=== PATIENT | female | born 1990 | race Caucasian/White ===

== ENCOUNTER 2024-09-09 10:51 | Observation (INO) | payer MEDICAID ==
[~2024-09-09 10:51] MED LIST: PRENTAB79
--- NOTE | 2024-09-09 11:36 | DVH ---
BIOPHYSICAL PROFILE HISTORY: GDMA1 Nuchal TECHNIQUE: Multiple transabdominal real-time grayscale sonographic images through the gravid uterus of the fetus with duplex Doppler color flow and M-mode spectral analysis FINDINGS: BIOPHYSICAL PROFILE: breathing score: 2 movement score: 2 tone score: 2 Quantitative KELTON score: 2 (KELTON: 18.9 Cm.) Total score: 8/8 Single live fetus in cephalic presentation. heart rate 136 beats per minute. Anterior placenta without previa or abruption No evidence for nuchal cord. IMPRESSION: 1. Biophysical profile score: 8/8 2. No evidence for nuchal cord. HS:Y
--- NOTE | 2024-09-15 13:13 | DVHDS2 ---
Physician Discharge Progress N Final Diagnosis: gdm,nuchal cord Operations or Procedures: Operations or Procedures nst,sono Condition on Discharge: Good Disposition: Home Discharge Instructions: Diet: Consistent carbohydrate Activity: No Restrictions, As Tolerated Medications: na Follow Up Care: Specialist: bernice in 2d Discharge Statement: "Patient was advised to return to the ER or call 911 if any headaches, dizziness, shortness of breath, chest pain, abdominal pain, bleeding, fevers, or worsening of medical condition. Patient was counseled about treatment plan, medications, possible side effects, patientverbalized understanding. All questions were answered to the best of my ability. This discharge took greater then 30 minutes in planning, reviewing documentation, counseling the patient, and discussing with other team members." PRITI ROGERS DO Sep 15, 2024 13:13
== END 2024-09-09 12:01 | disposition home or self-care (01) ==
LOC: LDRP 10:51 → UNDOADMOB 10:51 → LDRP 10:56 → UNDODISOB 12:01
PROVIDERS: ADMIT Obstetrics & Gynecology; ATTEND Obstetrics & Gynecology
DX: O24.419 Gestational diabetes mellitus in pregnancy, unspecified control (principal); O69.8 Labor and delivery complicated by other cord complications; Z3A.32 32 weeks gestation of pregnancy
CPT/HCPCS: 59025; 76818; 81002; 82948; 82962; 94760; G0378

== ENCOUNTER 2024-09-16 10:25 | Observation (INO) | payer MEDICAID ==
[~2024-09-16] VITALS: Ht 162.6 cm; Wt 91.6 kg
--- NOTE | 2024-09-16 12:08 | DVH ---
BIOPHYSICAL PROFILE HISTORY: GDMA1 TECHNIQUE: Multiple transabdominal real-time grayscale sonographic images through the gravid uterus of the fetus with duplex Doppler color flow and M-mode spectral analysis FINDINGS: BIOPHYSICAL PROFILE: breathing score: 2 movement score: 2 tone score: 2 Quantitative KELTON score: 2 (KELTON: 17.7 Cm.) Total score: 8 The cervix measures 3.6 cm with possible trace fluid. Single live fetus in cephalic presentation. heart rate 131 beats per minute. Anterior placenta without previa or abruption IMPRESSION: Biophysical profile score: 8
[2024-09-16] MEDS: TERBUTALINE SULFATE 1 MG/ML 1ML VIAL SC ONE ×3 (13:16→17:41)
[2024-09-16] MEDS: LACTATED RINGER'S 1,000 ML IV ONE (13:18)
--- NOTE | 2024-09-16 13:20 | DVHDS2 ---
Physician Discharge Progress N Final Diagnosis: cramping Operations or Procedures: Operations or Procedures nst,sono Condition on Discharge: Good Disposition: Home Discharge Instructions: Diet: Regular Activity: No Restrictions, As Tolerated Medications: na Follow Up Care: Specialist: 1w Discharge Statement: "Patient was advised to return to the ER or call 911 if any headaches, dizziness, shortness of breath, chest pain, abdominal pain, bleeding, fevers, or worsening of medical condition. Patient was counseled about treatment plan, medications, possible side effects, patientverbalized understanding. All questions were answered to the best of my ability. This discharge took greater then 30 minutes in planning, reviewing documentation, counseling the patient, and discussing with other team members." PRITI ROGERS DO Sep 16, 2024 13:20
[2024-09-16] MEDS ORDERED: NIFEdipine 10 MG CAP PO ONE (16:45)
[2024-09-16] MEDS: BETAMETHASONE ACET (30mg/5ml) 5ml Vial 6mg/ml IM ONE (17:34)
[2024-09-16] MEDS: NIFEdipine 10 MG CAP PO ONE (17:35)
[2024-09-16] MEDS ORDERED: NIFE10CA52 PO (18:29)
[2024-09-16] MEDS ORDERED: PREN-96 PO (18:29)
== END 2024-09-16 19:08 | disposition home or self-care (01) ==
LOC: LDRP 10:25
PROVIDERS: ADMIT Obstetrics & Gynecology; ATTEND Obstetrics & Gynecology
DX: O62.9 Abnormality of forces of labor, unspecified (principal); O26.893 Other specified pregnancy related conditions, third trimester; R19.7 Diarrhea, unspecified; O24.410 Gestational diabetes mellitus in pregnancy, diet controlled; Z3A.33 33 weeks gestation of pregnancy; Z79.899 Other long term (current) drug therapy; Z98.890 Other specified postprocedural states
CPT/HCPCS: 59025; 76818; 81002; 82948; 82962; 94760; 96360; 96361; 96372; G0378; J0702; J3105

== ENCOUNTER 2024-09-17 12:20 | Observation (INO) | payer MEDICAID ==
[~2024-09-17 12:20] MED LIST changes: +NIFE10CA52 PO; +PREN-96 PO; -PRENTAB79
[2024-09-17] MEDS: BETAMETHASONE ACET (30mg/5ml) 5ml Vial 6mg/ml IM ONE (17:07)
[2024-09-17] MEDS: NIFEdipine 10 MG CAP PO ONE (17:09)
== END 2024-09-17 17:12 | disposition home or self-care (01) ==
LOC: LDRP 16:45
PROVIDERS: ADMIT Obstetrics & Gynecology; ATTEND Obstetrics & Gynecology
DX: Z36.89 Encounter for other specified antenatal screening (principal); Z3A.33 33 weeks gestation of pregnancy; Z79.899 Other long term (current) drug therapy
CPT/HCPCS: 96372; G0378; J0702

== ENCOUNTER 2024-09-22 12:48 | Observation (INO) | payer MEDICAID ==
--- NOTE | 2024-09-22 14:31 | DVH ---
OB ULTRASOUND, LIMITED CLINICAL INDICATION: GDMA2/ NUCHAL TECHNIQUE: Multiple grayscale ultrasound and M-mode images were obtained of the pelvis for evaluation of intrauterine . COMPARISON: US BIOPHYSICAL PROFILE on DOS: 09/16/24, US BIOPHYSICAL PROFILE on DOS: 09/09/24 FINDINGS: Physical biophysical profile 06/04 breathin movements: 2 tone: 2 Amniotic fluid: 2 heart rate: 126 beats per minute KELTON: 18.2 cm position: Cephalic Central location: Anterior No evidence of nuchal cord IMPRESSION: Biophysical profile 06/04
--- NOTE | 2024-09-22 22:03 | DVHDS2 ---
Physician Discharge Progress N Final Diagnosis: testing for GDM, A2/PTL Operations or Procedures: Operations or Procedures 33yo IUP@34.4wks, taking procardia, +FM, denies UCs/VB/LOF VSS UA wnl NST reactive (verified by 2 RNs) BPP wnl FKC/PTL precautions reviewed. Condition on Discharge: Stable Disposition: Home Discharge Instructions: Diet: Consistent carbohydrate Activity: No Restrictions, As Tolerated Medications: see med list Follow Up Care: Specialist: f/u twice weekly Discharge Statement: "Patient was advised to return to the ER or call 911 if any headaches, dizziness, shortness of breath, chest pain, abdominal pain, bleeding, fevers, or worsening of medical condition. Patient was counseled about treatment plan, medications, possible side effects, patientverbalized understanding. All questions were answered to the best of my ability. This discharge took greater then 30 minutes in planning, reviewing documentation, counseling the patient, and discussing with other team members." ANN ARCINIEGA CNM Sep 22, 2024 22:03
== END 2024-09-22 15:21 | disposition home or self-care (01) ==
LOC: UNDOADMOB 13:42 → LDRP 13:42 → UNDODISOB 15:21
PROVIDERS: ADMIT Obstetrics & Gynecology; ATTEND Obstetrics & Gynecology
CPT/HCPCS: 59025 ×2; 76818 ×2; 81002 ×2; 82948 ×2; 82962 ×2; 94760 ×2; G0378

== ENCOUNTER 2024-09-26 04:46 | Observation (INO) | payer MEDICAID ==
--- NOTE | 2024-09-26 16:06 | DVH ---
BIOPHYSICAL PROFILE HISTORY: GDMA2 Comparison Study: None available at time of dictation. TECHNIQUE: Multiple real-time grayscale sonographic images through the gravid uterus of the fetus wi th duplex Doppler color flow and M-mode spectral analysis FINDINGS: BIOPHYSICAL PROFILE: breathing score: 2 movement score: 2 tone score: 2 Quantitative KELTON score: 2 (KELTON: 15.36 Cm.) Total score: 8/8 Single live fetus in cephalic presentation. heart rate 136 beats per minute. Anterior Grade 2 placenta without previa or abruption Single live fetus at 35 weeks 1 day Biophysical profile score 8/8 corresponding to an TABATHA of 10/30/2024 IMPRESSION: 1. Biophysical profile score: 8/8
--- NOTE | 2024-09-26 19:01 | DVHDS2 ---
Physician Discharge Progress N Final Diagnosis: gdm Operations or Procedures: Operations or Procedures nst,sono Condition on Discharge: Good Disposition: Home Discharge Instructions: Diet: Consistent carbohydrate Activity: No Restrictions, As Tolerated Medications: na Follow Up Care: Specialist: 3d Discharge Statement: "Patient was advised to return to the ER or call 911 if any headaches, dizziness, shortness of breath, chest pain, abdominal pain, bleeding, fevers, or worsening of medical condition. Patient was counseled about treatment plan, medications, possible side effects, patientverbalized understanding. All questions were answered to the best of my ability. This discharge took greater then 30 minutes in planning, reviewing documentation, counseling the patient, and discussing with other team members." PRITI ROGERS DO Sep 26, 2024 19:01
== END 2024-09-26 15:30 | disposition home or self-care (01) ==
LOC: LDRP 14:00
PROVIDERS: ADMIT Obstetrics & Gynecology; ATTEND Obstetrics & Gynecology
DX: O24.419 Gestational diabetes mellitus in pregnancy, unspecified control (principal); O69.81X0 Labor and delivery complicated by cord around neck, without compression, not applicable or unspecified; O60.03 Preterm labor without delivery, third trimester; Z3A.35 35 weeks gestation of pregnancy; Z79.899 Other long term (current) drug therapy
CPT/HCPCS: 59025; 76818; 81002; 82948; 82962; 94760; G0378

== ENCOUNTER 2024-09-30 15:55 | Observation (INO) | payer MEDICAID ==
--- NOTE | 2024-09-30 16:43 | DVH ---
EXAM: US BIOPHYSICAL PROFILE HISTORY: GDMA2 COMPARISON: US BIOPHYSICAL PROFILE on DOS: 09/26/24, US BIOPHYSICAL PROFILE on DOS: 09/22/24, US BIOP HYSICAL PROFILE on DOS: 09/16/24 TECHNIQUE: Multiple transabdominal real-time grayscale sonographic images through the gravid uterus of the fetus with duplex Doppler color flow and M-mode spectral analysis Findings/Impression: Single live intrauterine in vertex presentation with heart rate of 147 bpm. Sonograph er notes visualized activity and respirations. Biophysical profile was performed with 2 points for respirations, 2 points for movement, 2 points for tone and 2 points for amniotic fluid index. Biophysical profile score of 8/8. Amniotic fluid is within normal limits with KELTON 19.0 cm and MVP 6.5 cm. Possible nuchal cord. Normal KELTON (5-25 cm) Normal MVP (2-8 cm)
--- NOTE | 2024-10-01 15:41 | DVHDS2 ---
Physician Discharge Progress N Final Diagnosis: gdm Operations or Procedures: Operations or Procedures nst,sono Condition on Discharge: Good Disposition: Home Discharge Instructions: Diet: Consistent carbohydrate Activity: Light activity Medications: na Follow Up Care: Specialist: 3d Discharge Statement: "Patient was advised to return to the ER or call 911 if any headaches, dizziness, shortness of breath, chest pain, abdominal pain, bleeding, fevers, or worsening of medical condition. Patient was counseled about treatment plan, medications, possible side effects, patientverbalized understanding. All questions were answered to the best of my ability. This discharge took greater then 30 minutes in planning, reviewing documentation, counseling the patient, and discussing with other team members." PRITI ROGERS DO Oct 01, 2024 15:41
== END 2024-09-30 17:12 | disposition home or self-care (01) ==
LOC: LDRP 15:55
PROVIDERS: ADMIT Obstetrics & Gynecology; ATTEND Obstetrics & Gynecology
DX: O24.419 Gestational diabetes mellitus in pregnancy, unspecified control (principal); O60.03 Preterm labor without delivery, third trimester; Z98.890 Other specified postprocedural states; Z79.899 Other long term (current) drug therapy; Z3A.35 35 weeks gestation of pregnancy
CPT/HCPCS: 59025; 76818; 81002; 82948; 94760; G0378

== ENCOUNTER 2024-10-03 11:58 | Observation (INO) | payer MEDICAID ==
[~2024-10-03] VITALS: Ht 162.6 cm; Wt 92.1 kg
--- NOTE | 2024-10-03 12:48 | DVH ---
BIOPHYSICAL PROFILE HISTORY: GDMA2 TECHNIQUE: Multiple transabdominal real-time grayscale sonographic images through the gravid uterus of the fetus with duplex Doppler color flow and M-mode spectral analysis FINDINGS: BIOPHYSICAL PROFILE: breathing score: 2 movement score: 2 tone score: 2 Quantitative KELTON score: 2 (KELTON: 19.1 Cm.) Total score: 8/8 Single live fetus in cephalic presentation. heart rate 153 beats per minute. Anterior placenta without previa or abruption IMPRESSION: 1. Biophysical profile score: 8/8. HS:Y
== END 2024-10-03 13:33 | disposition home or self-care (01) ==
LOC: LDRP 11:58
PROVIDERS: ADMIT Obstetrics & Gynecology; ATTEND Obstetrics & Gynecology
DX: O24.419 Gestational diabetes mellitus in pregnancy, unspecified control (principal); Z3A.36 36 weeks gestation of pregnancy; Z79.899 Other long term (current) drug therapy; Z98.890 Other specified postprocedural states
CPT/HCPCS: 59025; 76818; 81002; 82948; 82962; 94760; G0378

== ENCOUNTER 2024-10-07 10:50 | Observation (INO) | payer MEDICAID ==
[~2024-10-07] VITALS: Ht 162.6 cm; Wt 92.5 kg
--- NOTE | 2024-10-07 11:54 | DVH ---
BIOPHYSICAL PROFILE HISTORY: GDMA2 TECHNIQUE: Multiple transabdominal real-time grayscale sonographic images through the gravid uterus of the fetus with duplex Doppler color flow and M-mode spectral analysis FINDINGS: BIOPHYSICAL PROFILE: breathing score: 2 movement score: 2 tone score: 2 Quantitative KELTON score: 2 (KELTON: 22.0 Cm.) Total score: 8/8 Single live fetus in cephalic presentation. heart rate 126 beats per minute. Anterior placenta without previa or abruption IMPRESSION: 1. Biophysical profile score: 8/8 HS:Y
== END 2024-10-07 12:32 | disposition home or self-care (01) ==
LOC: UNDOADMOB 10:50 → LDRP 10:50
PROVIDERS: ADMIT Obstetrics & Gynecology; ATTEND Obstetrics & Gynecology
DX: O24.419 Gestational diabetes mellitus in pregnancy, unspecified control (principal); Z98.890 Other specified postprocedural states; Z79.899 Other long term (current) drug therapy; Z3A.36 36 weeks gestation of pregnancy
CPT/HCPCS: 59025; 76818; 81002; 82948; 82962; 94760; G0378

== ENCOUNTER 2024-10-10 04:31 | Observation (INO) | payer MEDICAID ==
--- NOTE | 2024-10-10 15:03 | DVH ---
CLINICAL HISTORY: Gestational diabetes. COMPARISON: US BIOPHYSICAL PROFILE on DOS: 10/07/24, US BIOPHYSICAL PROFILE on DOS: 10/03/24, US BIOPH YSICAL PROFILE on DOS: 09/30/24 TECHNIQUE: biophysical profile was performed. Transabdominal sonographic images of the fetus we re obtained. FINDINGS: The fetus is in cephalic position. heart rate measures 138 BPM. Amniotic fluid index measures 20.7 cm. The placenta is anterior in position. BPP profile is an overall score of 8/8, with 2/2 points for breathing, with at least one episode of breathing over a 30 second duration during a 30 minute observation, 2/2 points for m ovements, with 3 or more discrete body or limb movements, 2/2 points for tone, with one or more episodes of extremity extension with return to flexion, or opening and closing of hand, and 2/ 2 points for amniotic fluid, with at least 1 pocket of amniotic fluid that measures 2 cm in 2 perpend icular planes. IMPRESSION: BPP score of 8/8.
--- NOTE | 2024-10-10 16:10 | DVHDS2 ---
Physician Discharge Progress N Final Diagnosis: GDM Secondary Diagnosis: Encounter for surveillance Operations or Procedures: Operations or Procedures NST/BPP KELTON Accucheck ALL WNL Commentary: Commentary status reassuring Condition on Discharge: Stable Disposition: Home Discharge Instructions: Diet: Consistent carbohydrate Activity: No Restrictions, As Tolerated Follow Up/Referral: as scheduled Medications: N/A Follow Up Care: Discharge Statement: "Patient was advised to return to the ER or call 911 if any headaches, dizziness, shortness of breath, chest pain, abdominal pain, bleeding, fevers, or worsening of medical condition. Patient was counseled about treatment plan, medications, possible side effects, patientverbalized understanding. All questions were answered to the best of my ability. This discharge took greater then 30 minutes in planning, reviewing documentation, counseling the patient, and discussing with other team members." CHINYERE ORONA DO Oct 10, 2024 16:10
== END 2024-10-10 14:55 | disposition home or self-care (01) ==
LOC: LDRP 13:45
PROVIDERS: ADMIT Obstetrics & Gynecology; ATTEND Obstetrics & Gynecology
DX: O24.419 Gestational diabetes mellitus in pregnancy, unspecified control (principal); Z3A.37 37 weeks gestation of pregnancy; Z79.899 Other long term (current) drug therapy; Z98.890 Other specified postprocedural states
CPT/HCPCS: 59025; 76818; 81002; 82948; 82962; 94760; G0378

== ENCOUNTER 2024-10-14 09:55 | Observation (INO) | payer MEDICAID ==
--- NOTE | 2024-10-14 11:02 | DVH ---
BIOPHYSICAL PROFILE HISTORY: GDMA2 TECHNIQUE: Multiple transabdominal real-time grayscale sonographic images through the gravid uterus of the fetus with duplex Doppler color flow and M-mode spectral analysis FINDINGS: BIOPHYSICAL PROFILE: breathing score: 2 movement score: 2 tone score: 2 Quantitative KELTON score: 2 (KELTON: 20.2 Cm.) Total score: 8/8 Single live fetus in cephalic presentation. heart rate 153 beats per minute. Anterior placenta without previa or abruption IMPRESSION: 1. Biophysical profile score: 8/8 HS:Y
--- NOTE | 2024-10-14 14:12 | DVHDS2 ---
Physician Discharge Progress N Final Diagnosis: gdm Operations or Procedures: Operations or Procedures nst,sono Condition on Discharge: Good Disposition: Home Discharge Instructions: Diet: Regular Activity: No Restrictions, As Tolerated Medications: na Follow Up Care: Specialist: 3d Discharge Statement: "Patient was advised to return to the ER or call 911 if any headaches, dizziness, shortness of breath, chest pain, abdominal pain, bleeding, fevers, or worsening of medical condition. Patient was counseled about treatment plan, medications, possible side effects, patientverbalized understanding. All questions were answered to the best of my ability. This discharge took greater then 30 minutes in planning, reviewing documentation, counseling the patient, and discussing with other team members." PRITI ROGERS DO Oct 14, 2024 14:12
== END 2024-10-14 11:29 | disposition home or self-care (01) ==
LOC: LDRP 09:55
PROVIDERS: ADMIT Obstetrics & Gynecology; ATTEND Obstetrics & Gynecology
DX: O24.419 Gestational diabetes mellitus in pregnancy, unspecified control (principal); Z3A.37 37 weeks gestation of pregnancy; Z79.899 Other long term (current) drug therapy
CPT/HCPCS: 59025; 76818; 81002; 82948; 82962; 94760; G0378

== ENCOUNTER 2024-10-17 11:49 | Observation (INO) | payer MEDICAID ==
[2024-10-17] MEDS ORDERED: GLYB2.5T9 PO (12:18)
--- NOTE | 2024-10-17 12:32 | DVH ---
BIOPHYSICAL PROFILE HISTORY: GDMA2 TECHNIQUE: Multiple transabdominal real-time grayscale sonographic images through the gravid uterus of the fetus with duplex Doppler color flow and M-mode spectral analysis FINDINGS: BIOPHYSICAL PROFILE: breathing score: 2 movement score: 2 tone score: 2 Quantitative KELTON score: 2 (KELTON: 21.7 Cm.) Total score: 8 4/8 Single live fetus in cephalic presentation. heart rate 144 beats per minute. Anterior Grade 2 placenta without previa or abruption Single live fetus at 30 weeks 1 day Biophysical profile score 8/8 corresponding to an TABATHA of 10/30/2024 IMPRESSION: 1. Biophysical profile score: 8/8
--- NOTE | 2024-10-17 17:28 | DVHDS2 ---
Obstetrics Discharge Summary Obstetrics Discharge Summary Date of Admission: Oct 17, 2024 Date of Discharge: Oct 17, 2024 Reason For Admission: Observational/Evaluation (Medical Complications) Procedures: NST, Ultrasound Discharge Diagnosis: Others (GDM A2) Discharge Information: Activity (Unrestricted), Diet (GDM diet), Medications (no new), Instructions (kick counts labor precautions), Discharge to (Home), Discarge date (10/17/2024) SHIMON LUCAS DO Oct 17, 2024 17:28
== END 2024-10-17 12:51 | disposition home or self-care (01) ==
LOC: LDRP 11:49
PROVIDERS: ADMIT Obstetrics & Gynecology; ATTEND Obstetrics & Gynecology
DX: O24.419 Gestational diabetes mellitus in pregnancy, unspecified control (principal); Z98.890 Other specified postprocedural states; Z79.899 Other long term (current) drug therapy; Z3A.38 38 weeks gestation of pregnancy
CPT/HCPCS: 59025; 76818; 81002; 82948; 82962; 94760; G0378

== ENCOUNTER 2024-10-22 06:34 | Inpatient (IN) | payer MEDICAID ==
[~2024-10-22] VITALS: Ht 162.6 cm; Wt 94.3 kg
[~2024-10-22 06:34] MED LIST changes: +GLYB2.5T9 PO
[2024-10-23] MEDS ORDERED: NALBUPHINE HCL 10 MG/1ml INJECTION IV PRN (06:45)
[2024-10-23] MEDS ORDERED: DERMOPLAST 60ML BOTTLE TOP PRN (06:45)
[2024-10-23] MEDS ORDERED: LIDOCAINE 2%HCL (LOCAL ANESTH.) INJ 20ML MDV IJ PRN (06:45)
[2024-10-23] MEDS ORDERED: WITCH HAZEL-GLYCERIN PAD TOP PRN (06:45)
[2024-10-23] MEDS ORDERED: PHISODERM TOP SOLN 240ML BTL TOP PRN (06:45)
[2024-10-23 07:35] LABS: Basophils # (auto) 0 10 ^3/uL (0-0.2); Basophils % (auto) 0.4 % (0.0-2.0); Eosinophils # (auto) 0.1 10 ^3/uL (0-0.8); Eosinophils % (auto) 0.8 % (0.0-7.0); Hematocrit 38.6 % (36.0-46.0); Hemoglobin 13.4 g/dL (12.2-16.2); Lymphocytes # (auto) 1.4 10 ^3/uL (0.4-5.4); Lymphocytes % (auto) 14.8 % (10.0-50.0); Mean Corpuscular Hemoglobin 31.8 pg (28.0-32.0); Mean Corpuscular Hgb Conc. 34.6 g/dL (32.0-36.0); Monocytes # (auto) 0.6 10 ^3/uL (0-1.3); Monocytes % (auto) 6.5 % (0.0-12.0); Neutrophils # (auto) 7.4 10 ^3/uL (1.6-8.6); Neutrophils % (auto) 77.5 % (37.0-80.0); Platelet Count (auto) 181 10^3/uL (140-450); Red Cell Distribution Width 13.7 % (11.8-14.3); White Blood Cell 9.5 10^3/uL (4.4-10.8)
[2024-10-23 07:43] LABS: Amphetamine Screen, Urine Neg (NEGATIVE); Barbiturate Scree,Urine Neg (NEGATIVE); Benzodiazephine Screen, Urine Neg (NEGATIVE); Cocaine Screen, Urine Neg (NEGATIVE)
[2024-10-23 07:43] LABS: INR 0.94 (0.9-1.15); Partial Thromboplastin Time 28.5 SEC (24.5-34.5)
[2024-10-23 07:46] LABS: Urine Bacteria FEW /hpf (None Seen); Urine Blood 2+ /uL (Negative); Urine Color Yellow (Yellow); Urine Protein, UAD TRACE (Negative); Urine Specific Gravity 1.015 (1.001-1.035); Urine Squamous Epithelial Cell MOD /hpf (<5); Urine Urobilinogen 3 mg/dL (Negative); Urine WBC 37 /hpf (0 - 5)
[2024-10-23 07:46] LABS: Alanine Aminotransferase 17 U/L (7-40); Albumin 3.6 g/dL (3.2-4.8); Anion Gap 10 (5-15); Aspartate Aminotransferase 18 U/L (13-40); Bilirubin, Total 0.7 mg/dL (0.2-1.0); Calcium 8.9 mg/dL (8.7-10.4); Carbon Dioxide 21 mmol/L (20-31); Glucose 106 mg/dL (74-106); Potassium 3.5 mmol/L (3.5-5.1); Sodium 139 mmol/L (136-145); Total Protein 6.3 g/dL (5.7-8.2)
[2024-10-23 07:47] LABS: Cannabinoid Screen, Urine Neg (NEGATIVE); Opiate Scree,Urine Neg (NEGATIVE); Phencyclidine Screen, Urine Neg (NEGATIVE)
[2024-10-23 07:47] LABS: Alkaline Phosphatase 134 U/L (46-116); BUN/Creatinine Ratio 9.8 (10.0-20.0); Blood Urea Nitrogen < 5 mg/dL (9-23); Chloride 108 mmol/L (98-107)
[2024-10-23 07:49] LABS: Urine Clarity Cloudy (Clear)
[2024-10-23] MEDS: miSOPROStol 50 MCG per PRE-CUT 1/2 TAB PO PRN (07:59)
--- NOTE | 2024-10-23 08:31 | DVHHP2 ---
OB CC & HPI Date Date of Admission: Oct 23, 2024 Patient Identification: : 3 Para: 2 EDC: Oct 30, 2024 EGA: 39wks Chief Complaints: Reason for admission: induction of labor Admission Nurse Assessment Rev: No History of Present Complaints pt is admitted for induction of labor due to gdm ,no rom por vag bleeding Past Medical History Cardiac: No pertinent Hx Pulmonary: No pertinent Hx Central Nervous System: No pertinent Hx GI: No pertinent Hx Hemotology/Oncology: No pertinent Hx Hepatobiliary: No pertinent Hx Psychiatric: No pertinent Hx Musculoskeletal: No pertinent Hx Rheumotologic: No pertinent Hx Infectious Disease: No peritnent Hx ENT: No pertinent Hx Renal/: No pertinent Hx Endocrine: No pertinent Hx Dermatology: No pertinent Hx Past Surgical History: No pertinent Hx OB History OB History Care: Good Care Ultrasounds: Normal mid trimester US Obstetrical Complications: Gestational Diabetes Medical Complications: None Allergies: Coded Allergies: Sulfa Antibiotics (Verified Allergy, Unknown, 10/03/24) Home Meds Active Scripts Nifedipine (PROCARDIA CAPSULE) 10 Mg Cp, 10 MG PO Q4HR for 16 Days, #96 CAP take until 36 weeks of Prov:ALAND[facility] 09/16/24 Vit W/ Ferrous Fumara ( One Daily) Daily Tab, 1 TAB PO DAILY, #90 TAB 3 Refills Prov:JUAN MANUELMILAGROSOMAIRANATHANAEL [facility] 09/16/24 Reported Medications Glyburide (Micronase) 2.5 Mg Tb, 1.25 TAB PO DAILY, #30 TAB 5 Refills 10/17/24 Current Medications Current Medications Medications (Trade) Dose Ordered Sig/Arcelia Route PRN Reason Start Time Stop Time Status Last Admin Lactated Ringer's 1,000 ml @ 125 mls/hr Q8H IV 10/23/24 06:45 Nalbuphine HCl (Nubain) 10 mg Q4HP PRN IV MODERATE PAIN (4-6 PAIN SCALE) 10/23/24 06:45 Diagnostic Test (Pha) (Accu-Chek Comfort Curve T) 1 strip Q4HR 10/23/24 10:00 Sarmad Paredes (Tucks) 1 pad PRN PRN TOP PERINEAL AREA DISCOMFORT 10/23/24 06:45 Sodium Lauryl Sulfate (Phisoderm) 240 ml PRN PRN TOP PERINEAL AREA DISCOMFORT 10/23/24 06:45 Benzocaine (Dermoplast) 1 applic PRN PRN TOP PERINEAL AREA DISCOMFORT 10/23/24 06:45 Misoprostol (Cytotec) 50 mcg Q4HPRN PRN PO CERVICAL RIPENING 10/23/24 06:45 10/23/24 07:59 Lidocaine HCl (Xylocaine) 20 ml ONCE PRN IJ PERINEAL AREA DISCOMFORT 10/23/24 06:45 Family & Social History Family/Social History Blood Type: Unknown Rubella: unknown RPR/VDRL: Negative GBS Status: Negative HBsAG: Negative Review of Systems Constitutional: No symptom reported Ears, Nose, & Throat: No symptom reported Eyes: No symptom reported Pulmonary/Respiratory: No symptom reported Cardiovascular: No symptom reported Gastrointestinal: No symptom reported Genitourinary: No symptom reported Musculoskeletal: No symptom reported Skin: No symptom reported Psychiatric: No symptom reported Endocrine: No symptom reported Hemotologic/Lymphatic: No symptom reported OB Admission Exam Physical Exam HEENT: TMs Normal, Fontanelles Normal, Nasal Mucosa Normal, Eyes non-injected, Oropharynx Normal, PERRLA, Moist Membranes, EOMI Heart: Rhythm Normal Lungs: Clear Abdomen: Non tender Extremities: Normal Reflexes: Normal Cervical Dilatation: 3cm Effacement: 75% Station: -2 Membranes: Intact Heart Rate: 130's Accelerations: Accelerations Present Decelerations: No Decelerations Short Term Variability: Present Acid Washer Operator Variability: Average (6-25) Contractions on Admission: >10 Minutes Apart Intensity: Mild OB Plan Plan Admitting Diagnosis: IOL FOR GDMA2 Plan: Expectant Management Induction Methd: Misoprostol protocol Other Plan: informed consent obtained PRITI ROGERS DO Oct 23, 2024 08:31
[2024-10-23] MEDS: ROPIVACAINE HCL 200 ML ONE (09:44)
[2024-10-23] MEDS: LACTATED RINGER'S 1,000 ML IV SCH (09:45)
[2024-10-23] MEDS ORDERED: ACCU-CHEK COMFORT CURVE STRIP VI SCH (10:00)
--- NOTE | 2024-10-23 10:50 | DVHPN2 ---
Chief Complaints Patient reports: No new complaints Nursing reports: No new complaints Objective Medications Current Medications Medications (Trade) Dose Ordered Sig/Arcelia Route PRN Reason Start Time Stop Time Status Last Admin Benzocaine (Dermoplast) 1 applic PRN PRN TOP PERINEAL AREA DISCOMFORT 10/23/24 06:45 Diagnostic Test (Pha) (Accu-Chek Comfort Curve T) 1 strip Q4HR 10/23/24 10:00 Lactated Ringer's 1,000 ml @ 125 mls/hr Q8H IV 10/23/24 06:45 10/23/24 09:45 Lidocaine HCl (Xylocaine) 20 ml ONCE PRN IJ PERINEAL AREA DISCOMFORT 10/23/24 06:45 Misoprostol (Cytotec) 50 mcg Q4HPRN PRN PO CERVICAL RIPENING 10/23/24 06:45 10/23/24 07:59 Nalbuphine HCl (Nubain) 10 mg Q4HP PRN IV MODERATE PAIN (4-6 PAIN SCALE) 10/23/24 06:45 Sodium Lauryl Sulfate (Phisoderm) 240 ml PRN PRN TOP PERINEAL AREA DISCOMFORT 10/23/24 06:45 Witch Lnea (Tucks) 1 pad PRN PRN TOP PERINEAL AREA DISCOMFORT 10/23/24 06:45 Others ve-9cm/-2/90 Studies Laboratory Tests 10/23/24 06:59 Test 10/23/24 06:59 Range/Units Serum Glucose 106 74-106 mg/dL Ass/Plan Assessment active labor Plan supportive care PRITI ROGERS DO Oct 23, 2024 10:50
[2024-10-23] MEDS: LACT. RINGERS/OXYTOCIN 20UNITS 500 ML IV ONE ×2 (13:15→14:56)
--- NOTE | 2024-10-23 14:13 | LDN2 ---
Labor and Delivery Note Date 10/23/24 Age 33 3 Para 3 EDC 1-3 EGA 39wks Diagnosis iol for gdm Vaginal Delivery: VTX Vacuum Assisted: No Placenta: Spontaneous Sex: Male Apgars 8-9 Nuchal Cord Transected: Yes Amniotic Fluid: Meconium Stained Anesthesia epidural Episiotomy: No Extension: No EBL 300ml Labs Laboratory Tests 06/20/11 16:09: Hepatitis B Surface Antigen Negative, Rubella Antibody Positive Blood Bank 10/23/24 06:59: Blood Type O POSITIVE Complications none Conditions stable Comments/Significant Med Hitesh spec exam no cxal lac PRITI ROGERS DO Oct 23, 2024 14:13
[2024-10-23] MEDS ORDERED: DOCU-265 PO (14:20)
[2024-10-23] MEDS ORDERED: IBU600T PO (14:20)
[2024-10-23 19:00] VITALS: BP 122/70; PULSE 92; RESP 18; TEMP 98; O2SAT 97
[2024-10-23] MEDS: IBUPROFEN 600 MG TAB PO PRN (19:03)
[2024-10-23] MEDS: DOCUSATE SOD 100 MG CAP PO SCH (22:30)
[2024-10-23 22:35] VITALS: BP 105/60; PULSE 81; RESP 16; TEMP 98.5; O2SAT 97
[2024-10-24 03:00] VITALS: BP 99/57; PULSE 76; RESP 16; TEMP 98.4; O2SAT 100
--- NOTE | 2024-10-24 03:49 | DVHDS2 ---
Obstetrics Discharge Summary Obstetrics Discharge Summary Date of Admission: Oct 23, 2024 Date of Discharge: Oct 24, 2024 Reason For Admission: Induction of Labor (GDM, A2) Procedures: NST, Mgmt of Obstetrics Compli (GDM, A2) Intrapartum Procedures: Spontaneous vaginal deliv Procedures: Hct/date: (10/24/24), Hgb/date: (10/24/24) Operative Complicat: None Discharge Diagnosis: Term -Delivered Discharge Information: Activity (as tolerated, no heavy lifting and nothing in the vagina for 6 weeks), Diet (Routine), Medications (Rx sent), Instructions (Routine), Discharge to (Home), Accompanied by (partner), Discarge date (10/24/24) ANN ARCINIEGA CNM Oct 24, 2024 03:49
--- NOTE | 2024-10-24 03:49 | DVHPN2 ---
Progress Note Date Seen: Oct 24, 2024 Subjective S: bleeding is less, eating food without issues, denies lightheaded/dizziness, pain well controlled with oral medications, no concerns with urinating, passing flatus, no BM yet, ambulating well, vital signs Vital Sign Date Time Temp Pulse Resp B/P (MAP) Pulse Ox O2 Delivery O2 Flow Rate FiO2 10/23/24 22:35 98.5 81 16 105/60 (75) 97 98.5 10/23/24 19:30 Room Air Total Intake and Output 10/23/24 10/23/24 10/24/24 15:00 23:00 07:00 Intake Total 560.9 ml 500 ml Output Total 1600 ml 400 ml Balance 560.9 ml -1100 ml -400 ml medications Current Medications Medications Dose Ordered Sig/Arcelia Route Start Time Stop Time Status Last Admin Dose Admin Sarmad Paredes 1 pad PRN PRN TOP 10/23/24 06:45 Sodium Lauryl Sulfate 240 ml PRN PRN TOP 10/23/24 06:45 Benzocaine 1 applic PRN PRN TOP 10/23/24 06:45 Ibuprofen 600 mg Q6HP PRN PO 10/23/24 14:15 10/24/24 01:36 600 MG Acetaminophen 650 mg Q6HPRN PRN PO 10/23/24 14:15 Docusate Sodium 200 mg HS PO 10/23/24 22:00 10/23/24 22:30 200 MG Prenat Multivit/ [place]/Iron/Folic Ac 1 DAILY PO 10/24/24 10:00 laboratory and microbiology Laboratory Tests 10/23/24 06:59 Test 10/23/24 06:59 Range/Units Serum Glucose 106 74-106 mg/dL Objective O: VSS Chest: heart sounds normal and lung sounds clear bilaterally Abd: soft, non-tender, fundus at U/firm/midline, active bowel sounds, no rebound or guarding Perineum: intact, no erythema/edema noted Ext: Non-tender, No edema, 2+ BLE DTRs Lochia: minimal See lab results Problems(with codes): (1) (normal spontaneous vaginal delivery) (2) Intact perineum Assessment/Plan A: 33yo now PPD#1 s/p Rh+ Pain control with PO medications Bowel regimen P: D/C home today Rx sent to pharmacy precautions and preeclampsia warning signs reviewed F/U with [facility] OB office in 2 weeks Plan discussed with: Patient ANN ARCINIEGA CNM Oct 24, 2024 03:48
[2024-10-24 06:06] LABS: RPR Non Reactive (Non Reactive)
[2024-10-24 07:00] VITALS: BP 104/59; PULSE 73; RESP 16; TEMP 98.2; O2SAT 99
[2024-10-24 08:02] LABS: Basophils # (auto) 0 10 ^3/uL (0-0.2); Basophils % (auto) 0.1 % (0.0-2.0); Eosinophils # (auto) 0.1 10 ^3/uL (0-0.8); Eosinophils % (auto) 0.8 % (0.0-7.0); Hemoglobin 12.7 g/dL (12.2-16.2); Lymphocytes # (auto) 1.4 10 ^3/uL (0.4-5.4); Lymphocytes % (auto) 11.1 % (10.0-50.0); Mean Corpuscular Hemoglobin 31.7 pg (28.0-32.0); Mean Corpuscular Hgb Conc. 34.4 g/dL (32.0-36.0); Mean Corpuscular Volume 92.2 fL (80.0-100.0); Monocytes # (auto) 0.7 10 ^3/uL (0-1.3); Monocytes % (auto) 5.5 % (0.0-12.0); Neutrophils # (auto) 10.1 10 ^3/uL (1.6-8.6); Neutrophils % (auto) 82.5 % (37.0-80.0); Platelet Count (auto) 166 10^3/uL (140-450); Red Blood Cells 4.01 10^6/uL (4.0-5.20); Red Cell Distribution Width 13.8 % (11.8-14.3); White Blood Cell 12.2 10^3/uL (4.4-10.8)
[2024-10-24] MEDS: PRENATAL VITAMIN TAB PO SCH (11:03)
[2024-10-24] MEDS: ACETAMINOPHEN 325 MG TAB PO PRN (11:03)
[2024-10-24 11:07] VITALS: BP 110/54; PULSE 68; RESP 16; TEMP 98; O2SAT 98
[2024-10-26 10:06] LABS: Treponema Pallidum Ab LC Equivocal (Non Reactive)
== END 2024-10-24 12:54 | disposition home or self-care (01) | DRG 560 ==
LOC: PREOBSVTOIN 06:34 → LDRP 10-23 06:27 → INTOOBSV 10-23 06:27 → OBSVTOIN 10-23 06:27
PROVIDERS: ADMIT Obstetrics & Gynecology; ATTEND Obstetrics & Gynecology
PROC: 10E0XZZ Delivery of Products of Conception, External Approach (ICD-10-PCS; principal; 2024-10-23)
PROC: 3E0DXGC Introduction of Other Therapeutic Substance into Mouth and Pharynx, External Approach (ICD-10-PCS; 2024-10-23)
PROC: 3E0R3BZ Introduction of Anesthetic Agent into Spinal Canal, Percutaneous Approach (ICD-10-PCS; 2024-10-23)
PROC: 00HU33Z Insertion of Infusion Device into Spinal Canal, Percutaneous Approach (ICD-10-PCS; 2024-10-23)
DX: O69.81X0 Labor and delivery complicated by cord around neck, without compression, not applicable or unspecified (principal); Z37.0 Single live birth; O24.425 Gestational diabetes mellitus in childbirth, controlled by oral hypoglycemic drugs; O77.0 Labor and delivery complicated by meconium in amniotic fluid; Z3A.39 39 weeks gestation of pregnancy
CPT/HCPCS: 36415; 59409; 62282; 80053; 80307; 81001; 81002; 82948; 82962; 85025; 85610; 85730; 86592; 86780; 86803; 86850; 86900; 86901; 94760; 96360; 96361; 96365; 96366; G0378; J2590

== ENCOUNTER 2025-01-29 08:23 | Day surgery (SDC) | payer MEDICAID ==
--- NOTE | 2025-01-26 11:18 | DVHHP ---
ADMIT DATE: 01/29/2025 CHIEF COMPLAINT: Desires bilateral tubal ligation. HISTORY OF PRESENT ILLNESS: The patient is a 34-year-old 4 para 3-0-1-3 admitted for laparoscopic placement of Filshie clips. Risks, complications, alternatives, failure rate discussed with the patient. Options reviewed. All questions answered. The patient wishes to proceed with planned procedure. PAST MEDICAL HISTORY: None. PAST SURGICAL HISTORY: D and C. SOCIAL HISTORY: None. FAMILY HISTORY: None. OBSTETRIC AND GYNECOLOGIC HISTORY: Three normal vaginal deliveries. One spontaneous AB. ALLERGIES: SULFA. REVIEW OF SYSTEMS: Consistent with HPI. PHYSICAL EXAMINATION: VITAL SIGNS: Stable, afebrile. HEENT: Within normal limits. CARDIOVASCULAR: Regular rate and rhythm. LUNGS: Clear to auscultation. BREASTS: Symmetrical. No masses. ABDOMEN: Obese. Nontender. PELVIC: External genitalia within normal limits. Vagina normal. Cervix grossly normal-appearing. Uterus 8-week size. Adnexa nonpalpable. EXTREMITIES: No clubbing, cyanosis, edema. IMPRESSION: * Multiparity, desires tubal sterilization. * Morbid obesity. PLAN: Laparoscopic placement of Filshie clip. Informed consent obtained. Risks and complications of surgery including infection, bleeding, hematoma formation, injury to bowel, bladder, surrounding organs, possibility of DVT, pulmonary embolism, risk of anesthesia, possibility of exploratory laparotomy, failure rate discussed with the patient. Options reviewed. All questions answered. The patient fully understands. She wishes to proceed with planned procedure. DO MARA Phillip TID: [id number] RECEIPT: [id number]
[2025-01-26 11:35] LABS: Urine Bacteria None Seen /hpf (None Seen)
[2025-01-26 12:09] LABS: Basophils # (auto) 0 10 ^3/uL (0-0.2); Basophils % (auto) 0.3 % (0.0-2.0); Eosinophils # (auto) 0.1 10 ^3/uL (0-0.8); Eosinophils % (auto) 0.9 % (0.0-7.0); Hematocrit 38.4 % (36.0-46.0); Hemoglobin 13.5 g/dL (12.2-16.2); Lymphocytes # (auto) 1.2 10 ^3/uL (0.4-5.4); Lymphocytes % (auto) 19.2 % (10.0-50.0); Mean Corpuscular Hemoglobin 32.3 pg (28.0-32.0); Mean Corpuscular Hgb Conc. 35.2 g/dL (32.0-36.0); Mean Corpuscular Volume 91.7 fL (80.0-100.0); Monocytes # (auto) 0.4 10 ^3/uL (0-1.3); Monocytes % (auto) 5.9 % (0.0-12.0); Neutrophils # (auto) 4.7 10 ^3/uL (1.6-8.6); Neutrophils % (auto) 73.7 % (37.0-80.0); Platelet Count (auto) 238 10^3/uL (140-450); Red Blood Cells 4.19 10^6/uL (4.0-5.20); Red Cell Distribution Width 13.3 % (11.8-14.3); White Blood Cell 6.4 10^3/uL (4.4-10.8)
[2025-01-26 12:14] LABS: Urine Blood Negative /uL (Negative); Urine Clarity Clear (Clear); Urine Color Light-Yellow (Yellow); Urine Protein, UAD Negative (Negative); Urine Specific Gravity 1.012 (1.001-1.035); Urine Squamous Epithelial Cell FEW /hpf (<5); Urine Urobilinogen Normal (Negative); Urine WBC < 1 /HPF (0-5)
[2025-01-26 12:31] LABS: INR 1.03 (0.9-1.15); Partial Thromboplastin Time 29.9 SEC (24.5-34.5); Prothrombin Time 10.9 sec (9.3-11.8)
[2025-01-26 12:40] LABS: Alanine Aminotransferase 24 U/L (7-40); Albumin 4.3 g/dL (3.2-4.8); Alkaline Phosphatase 71 U/L (46-116); Anion Gap 7 (5-15); Aspartate Aminotransferase 15 U/L (13-40); BUN/Creatinine Ratio 13.2 (10.0-20.0); Blood Urea Nitrogen 10 mg/dL (9-23); Carbon Dioxide 28 mmol/L (20-31); Chloride 105 mmol/L (98-107); Glucose 92 mg/dL (74-106); Potassium 3.7 mmol/L (3.5-5.1); Sodium 140 mmol/L (136-145); Total Protein 6.8 g/dL (5.7-8.2)
[2025-01-26 12:49] LABS: Bilirubin, Total 1.3 mg/dL (0.2-1.0)
[~2025-01-29] VITALS: Ht 162.6 cm; Wt 90.3 kg
[~2025-01-29 08:23] MED LIST changes: -GLYB2.5T9 PO; -NIFE10CA52 PO
[2025-01-29] MEDS ORDERED: fentaNYL CITRATE 100 MCG/2 ML VL ONE ×2 (08:35→09:32)
[2025-01-29] MEDS ORDERED: ceFAZolin 2 GM/D5W100ml 100 ML IV ONE (08:52)
[2025-01-29] MEDS ORDERED: ROCURONIUM 10MG/ML 10ML VIAL IV ONE (09:03)
[2025-01-29] MEDS ORDERED: ONDANSETRON HCL 4 MG/2 ML VIAL ONE (09:07)
[2025-01-29] MEDS ORDERED: DexAMETHasone SOD PHOS 10MG/1ML VIAL INJ ONE (09:07)
[2025-01-29] MEDS: BUPIVACAINE 0.5% MPF INJ 30ML SDV IJ ONE (09:16)
[2025-01-29] MEDS: Lidocaine/Epinephrine 1%-1:100,000 30ML VL ONE (09:16)
[2025-01-29] MEDS ORDERED: SUGAMMADEX 200mg/2ml Vial (100MG/ML) IV ONE (09:28)
[2025-01-29] MEDS ORDERED: LACTATED RINGER'S 1,000 ML IV SCH (09:30)
[2025-01-29] MEDS ORDERED: HYDR-4072 PO (09:31)
[2025-01-29] MEDS ORDERED: IBUP-1456 PO (09:31)
[2025-01-29] MEDS ORDERED: ZOFR4T PO (09:31)
[2025-01-29 09:46] VITALS: PULSE 75; RESP 13; TEMP 97.3; O2SAT 94
[2025-01-29 09:55] VITALS: PULSE 79; RESP 14; O2SAT 100
[2025-01-29] MEDS: SUCCINYLCHOLINE CHLORIDE 20 MG/ML 10ML VIAL IV ONE (10:02)
[2025-01-29 10:10] VITALS: PULSE 90; RESP 13; O2SAT 98
[2025-01-29 10:31] VITALS: BP 103/60; PULSE 84; RESP 12; O2SAT 99
[2025-01-29] MEDS: ONDANSETRON HCL 4 MG/2 ML VIAL IV PRN (10:40)
--- NOTE | 2025-01-29 14:40 | DVHOP2 ---
Operative Report DATE OF OPERATION: 01/29/25 PREOPERATIVE DIAGNOSES: 1. Desires elective tubal sterilization. 2. MORBID OBESITY POSTOPERATIVE DIAGNOSES: 1. Desires elective tubal sterilization. 2. MORBID OBESITY SURGEON: Fiona Julio D.O./[facility] ANESTHESIOLOGIST: ROLAND TYPE OF ANESTHESIA : General. CONSENT: The patient was informed of the risks and benefits of the procedure. The patient was informed of the risks and benefits of the procedure. These include but are not limited to , complications of anesthesia, postoperative infection, incomplete relief of symptoms, recurrence of symptoms, damage to blood vessels, nerves and tendons, deep venous thrombosis, pulmonary embolism and possible need for repeat surgery in the future. FINDINGS: Cervix is grossly normal appearing. Uterus is 10 weeks' size. Adnexa nonpalpable. COMPLICATIONS: None. BLOOD PRODUCTS USED: None. PROCEDURES: Laparoscopic placement of Filschi Clips to bilateral tubes PROCEDURE IN DETAIL: The patient was taken to the operating room where she was placed under general anesthesia. The patient was then prepped and draped in the usual sterile manner in the dorsal lithotomy position. The bladder was emptied using a straight catheter. Examination under anesthesia revealed the above findings. A weighted speculum was placed in the vagina. The anterior lip of the cervix was grasped using single-tooth tenaculum. Cervix was dilated. Uterus sounded to 10 cm. HUMI catheter was placed. Attention was then turned to the abdomen where a Veress needle was introduced. Abdomen was distended with 3L of CO2 gas. Using Visiport, abdomen was entered under direct visualization. Survey of abdominal cavity revealed normal finding. A 8 mm trocar was placed into the suprapubic region. Filshie clip was then loaded on the right tube as well as the left. No bleeding was noted. All the instruments were removed from the abdomen and pelvis. CO2 gas released. Incisional ports were closed using #4-0 Vicryl and víctor for the larger port. The patient tolerated the procedure well. All instruments were removed from the patient's cervix. The patient was taken to the recovery room in a stable condition. ESTIMATED BLOOD LOSS: 20 mL Visit Coding OBGYN Date of Service: Jan 29, 2025 Billing Provider: FIONA JULIO DO CERTIFIED PROFESSIONAL CODER Common Visit Codes: 46401-SMN/OBS SAME DATE (HIGH) CERTIFIED PROFESSIONAL CODER Procedure Codes: 57820-FAE.SURG:W/REM ADNEXAL STRUCT SUEFIONA DO Jan 29, 2025 14:40
--- NOTE | 2025-01-29 14:44 | POSTOP ---
Post-Operative Note Post-Operative Note Preop Diagnosis MORBID OBESITY,DESIRES TUBAL LIGATION Postop Diagnosis: SAME Operation performed LAPAROSCOPIC PLACEMENT OF FILSCHIE CLIPS Specimen NA Anesthesia: General Anesthesiologist: NUYGEN Blood Loss(fluid mgmt) 20ML Surgeon Priti Julio Project Account Manager [employer] Implant FILSCHIE Complications & Mgmt NONE Date 01/29/25 Time 14:41 Visit Coding OBGYN Date of Service: Jan 29, 2025 Billing Provider: PRITI JULIO DO [employer] Common Visit Codes: 91517-DTT/OBS SAME DATE (HIGH) H[employer]MER HEATER Procedure Codes: 61858-PVG.SURG:W/REM ADNEXAL STRUCT PRITI JULIO DO Jan 29, 2025 14:44
--- NOTE | 2025-01-29 14:48 | DVHDS2 ---
Physician Discharge Progress N Final Diagnosis: S/P TUBAL LIGATION Operations or Procedures: Operations or Procedures LAPAROSCOPIC PLACEMENT OF FILSCHIE CLIPS Condition on Discharge: Good Disposition: Home Discharge Instructions: Diet: Regular Activity: Light activity Follow Up/Referral: 1w Medications: maurisio rodas Follow Up Care: Specialist: 1W Discharge Statement: "Patient was advised to return to the ER or call 911 if any headaches, dizziness, shortness of breath, chest pain, abdominal pain, bleeding, fevers, or worsening of medical condition. Patient was counseled about treatment plan, medications, possible side effects, patientverbalized understanding. All questions were answered to the best of my ability. This discharge took greater then 30 minutes in planning, reviewing documentation, counseling the patient, and discussing with other team members." Visit Coding OBGYN Date of Service: Jan 29, 2025 Billing Provider: PRITI ROGERS DO [employer] Common Visit Codes: 89348-MZB/OBS SAME DATE (HIGH) [employer] Procedure Codes: 60628-INJ.SURG:ON OVIDUCT/OVARY PRITI ROGERS DO Jan 29, 2025 14:48
== END 2025-01-29 11:00 | disposition home or self-care (01) ==
LOC: SUR 08:23
PROVIDERS: ATTEND Obstetrics & Gynecology
DX: Z30.2 Encounter for sterilization (principal); E66.01 Morbid (severe) obesity due to excess calories; Z68.34 Body mass index [BMI] 34.0-34.9, adult; Z79.84 Long term (current) use of oral hypoglycemic drugs; Z79.899 Other long term (current) drug therapy; Z88.2 Allergy status to sulfonamides
CPT/HCPCS: 36415; 58671; 80053; 81001; 81025; 84702; 85025; 85610; 85730; 86850; 86900; 86901; A4264; J0330; J1100; J2405; J3010; J3490